=== PATIENT | male | born 1995 | race Caucasian/White ===

== ENCOUNTER 2020-10-22 22:21 | Emergency (ER) | payer OTHER ==
[~2020-10-22 22:21] MED LIST: EFFEXOR XR150 MG PO; HYDROCODON-ACE1 EAC2 PO; MELOXICAM15 MG PO; ONDANSETRON ODT4 MG SL; PERCOCET 10-321 EACH PO; VENLAFAXINE H37.5 M2 PO; VENLAFAXINE HCL75 M2 PO
[2020-10-23] MEDS ORDERED: CLEOCIN300 MG PO (01:01)
[2020-10-23 02:40] LABS: BILIRUBIN - TOTAL 0.8 mg/dL (0.2-1.0); C-REACTIVE PROTEIN 3.1 mg/dL (<=0.90); CREATININE 0.94 mg/dL (0.67-1.17); POTASSIUM 3.7 mmol/L (3.5-5.1)
[2020-10-23 02:50] LABS: BASOPHIL 0.3 % (0-2); EOSINOPHIL 0.5 % (0-5); HCT 46.1 % (42.0-52.0); HGB 15.6 g/dl (13.2-18.0); LYMPHOCYTE 12.4 % (15-48); MCH 30.3 pg (25.0-31.0); MCHC 33.8 g/dL (32.0-36.0); MCV 89.5 fL (78.0-100.0); MONOCYTE 9.8 % (0-12); MPV 10.2 fL (6.0-9.5); NEUTROPHIL 76.6 % (41-80); NRBC 0; PLT 315 K/uL (150-400); RBC 5.15 M/uL (4.70-6.00); RDW 12.8 % (11.5-14.0); WBC 14.2 K/uL (4.0-10.5)
[2020-10-23 03:13] LABS: COLOR YELLOW (YELLOW)
[2020-10-23 03:14] LABS: BILIRUBIN NEGATIVE (NEGATIVE); BLOOD NEGATIVE Ery/uL (NEGATIVE); CLARITY CLEAR (CLEAR); GLUCOSE (U) NORMAL (NORMAL); NITRITE NEGATIVE (NEGATIVE); PROTEIN NEGATIVE (NEGATIVE); SPECIFIC GRAVITY >=1.030 (1.001-1.030); UROBILINOGEN 0.2 mg/dL (0.2-1.0)
[2020-10-23 03:15] LABS: LEUKOCYTES NEGATIVE Leu/uL (NEGATIVE)
== END 2020-10-23 01:10 | disposition home or self-care (01) ==
LOC: FER 22:21
PROVIDERS: Emergency Medicine
DX: L03.312 Cellulitis of back [any part except buttock and flank] (principal)
CPT/HCPCS: 36415; 80053; 81003; 85025; 86140; 99283; J1885